=== PATIENT | female | born 1955 | race Caucasian/White ===

== ENCOUNTER → 2016-10-27 | Outpatient (CLI) | payer OTHER ==
[~2016-10-27] MED LIST: BENZ28CR2 VG; CHOL100018 PO; ESTR1PAT10 TP; MULT-115 PO; PROG100C4 PO; ROSU10TA PO
[2016-10-27 10:08] LABS: HEMOGLOBIN 14.9 g/dL (11.7-16.4)
[2016-10-27 10:28] LABS: ASPARTATE AMINO TRANSFERASE 26 U/L (15-37); BLOOD UREA NITROGEN 20 mg/dL (7-18)
== END | disposition home or self-care (01) ==
LOC: STAR 08:39
PROVIDERS: ATTEND Neurological Surgery
DX: Z01.811 Encounter for preprocedural respiratory examination (principal); M50.30 Other cervical disc degeneration, unspecified cervical region; M47.892 Other spondylosis, cervical region; M48.02 Spinal stenosis, cervical region; Z98.890 Other specified postprocedural states
CPT/HCPCS: 36415; 71020; 72052; 80053; 81003; 85025; 85610; 85730; 93005

== ENCOUNTER → 2017-03-26 | Outpatient (CLI) | payer OTHER ==
[~2017-03-26] MED LIST changes: +CHOL100012 PO; -CHOL100018 PO; +PROG100C16 PO; -PROG100C4 PO
== END | disposition home or self-care (01) ==
LOC: CFH 10:56
PROVIDERS: ATTEND Obstetrics & Gynecology
DX: Z12.31 Encounter for screening mammogram for malignant neoplasm of breast (principal)
CPT/HCPCS: G0202

== ENCOUNTER → 2017-04-06 | Outpatient (CLI) | payer OTHER ==
[~2017-04-06] MED LIST changes: +CHOL10003 PO
[2017-04-06 14:50] LABS: HEMATOCRIT 42.5 % (34.6-47.8); HEMOGLOBIN 13.9 g/dL (11.7-16.4); WHITE BLOOD COUNT 7.2 x10^3/uL (3.4-10)
[2017-04-06 14:59] LABS: PATH.CAST-FLAG NOT PRESENT; SPERM-FLAG NOT PRESENT; SRC-FLAG NOT PRESENT; XTAL-FLAG NOT PRESENT; YLC-FLAG NOT PRESENT
[2017-04-06 15:01] LABS: BLOOD UREA NITROGEN 26 mg/dL (7-18)
== END | disposition home or self-care (01) ==
LOC: STAR 13:51
PROVIDERS: ATTEND Neurological Surgery
DX: Z01.818 Encounter for other preprocedural examination (principal); R94.31 Abnormal electrocardiogram [ECG] [EKG]; J98.4 Other disorders of lung; M47.894 Other spondylosis, thoracic region; M50.323 Other cervical disc degeneration at C6-C7 level; R79.1 Abnormal coagulation profile
CPT/HCPCS: 36415; 71020; 80048; 81001; 85025; 85610; 85730; 87086; 93005

== ENCOUNTER → 2017-04-08 | Outpatient (CLI) | payer OTHER ==
[2017-04-08 16:16] LABS: PATH.CAST-FLAG NOT PRESENT; SPERM-FLAG NOT PRESENT; SRC-FLAG NOT PRESENT; XTAL-FLAG NOT PRESENT; YLC-FLAG NOT PRESENT
== END | disposition home or self-care (01) ==
LOC: RAD 15:37
PROVIDERS: ATTEND Internal Medicine
DX: M25.551 Pain in right hip (principal); D72.829 Elevated white blood cell count, unspecified; R82.99 Other abnormal findings in urine
CPT/HCPCS: 81001; 87086

== ENCOUNTER 2017-04-15 07:06 | Inpatient (IN) | payer OTHER ==
[~2017-04-15] VITALS: Ht 163.8 cm; Wt 60.4 kg
[~2017-04-15 07:06] MED LIST changes: +BACITRACIN 50,000 UNIT ONE; +BUPIVACAINE/PF 0.5% ONE; +EPINEPHRINE 1 MG/ML, 1ML ONE; +THROMBIN 5,000 UNIT VIAL TP ONE
[2017-04-15] MEDS ORDERED: LACTATED RINGERS 1,000 ML IV SCH (07:28)
[2017-04-15 07:31] VITALS: BP 127/82
[2017-04-15] MEDS ORDERED: FENTANYL PF 100 MCG/2ML ONE ×2 (08:16→11:36)
[2017-04-15] MEDS ORDERED: MIDAZOLAM 1 MG/ML, 2ML ONE ×3 (08:17→12:04)
[2017-04-15] MEDS ORDERED: ALBUTEROL SULFATE 2.5 MG/3 ML NPPB PRN (08:30)
[2017-04-15] MEDS ORDERED: hydrALAzine 20 MG/ML, 1ML IV PRN (08:30)
[2017-04-15] MEDS ORDERED: MEPERIDINE/PF 25MG/0.5ML IVPush PRN (08:30)
[2017-04-15] MEDS ORDERED: ONDANSETRON 2MG/ML, 2ML IVPush PRN ×2 (08:30→11:30)
[2017-04-15] MEDS ORDERED: EPHEDRINE 50 MG/ML, 1ML IVPush PRN (08:30)
[2017-04-15] MEDS ORDERED: LABETALOL 5MG/ML, 20ML IV PRN (08:30)
[2017-04-15] MEDS ORDERED: METOCLOPRAMIDE 5 MG/ML, 2ML IV PRN (08:30)
[2017-04-15] MEDS ORDERED: REMIFENTANIL 2 MG ONE (09:24)
[2017-04-15] MEDS ORDERED: CEFAZOLIN 1,000 MG ONE (09:27)
[2017-04-15] MEDS ORDERED: EPHEDRINE 50 MG/ML, 1ML ONE (09:27)
[2017-04-15] MEDS ORDERED: ONDANSETRON 2MG/ML, 2ML ONE (09:27)
[2017-04-15] MEDS ORDERED: PROPOFOL 10 MG/ML, 20ML ONE ×2 (09:27)
[2017-04-15] MEDS ORDERED: SUCCINYLCHOLINE 20 MG/ML, 10ML ONE (09:27)
[2017-04-15] MEDS ORDERED: DEXAMETHASONE 4 MG/ML, 5ML ONE (09:27)
[2017-04-15] MEDS ORDERED: BISACODYL 10 MG SUPP PR PRN (11:30)
[2017-04-15] MEDS ORDERED: PHARMACY MAY ADJ FOR RENAL FX MC PRN (11:30)
[2017-04-15] MEDS ORDERED: SENNA/DOCUSATE TABLET PO PRN (11:30)
[2017-04-15] MEDS ORDERED: LABETALOL 5MG/ML, 20ML IVPush PRN (11:30)
[2017-04-15] MEDS ORDERED: PROMETHAZINE 25 MG/ML, 1ML IM PRN (11:30)
[2017-04-15] MEDS ORDERED: HYDROcodone/APAP 5/325 TABLET PO PRN (11:30)
[2017-04-15] MEDS ORDERED: DIPHENHYDRAMINE 50 MG/ML, 1ML IVPush PRN (11:30)
[2017-04-15] MEDS ORDERED: OXYcodone/APAP 5/325MG TABLET PO PRN (11:30)
[2017-04-15] MEDS ORDERED: HYDROmorphone 2 MG/ML, 1ML ONE ×2 (11:36→11:56)
[2017-04-15] MEDS ORDERED: OXYcodone 5 MG/5 ML ORAL.SOL UDC ONE ×2 (11:36→12:16)
[2017-04-15] MEDS ORDERED: ACETAMINOPHEN 650 MG/20.3 ML UDC ONE (11:36)
[2017-04-15] MEDS: FENTANYL PF 100 MCG/2ML IV PRN ×2 (11:38→11:46)
[2017-04-15] MEDS: OXYcodone 5 MG/5 ML ORAL.SOL UDC PO PRN ×2 (11:43→12:17)
[2017-04-15] MEDS ORDERED: METHOCARBAMOL 750 MG TABLET ONE (11:47)
[2017-04-15] MEDS: METHOCARBAMOL 750 MG TABLET PO PRN ×2 (11:49→20:27)
[2017-04-15] MEDS: HYDROmorphone 1 MG/ML, 1ML IV PRN ×3 (11:57→12:14)
[2017-04-15] MEDS ORDERED: methylPREDNISolone*ACETATE* 80 MG/ML IM ONE (12:00)
[2017-04-15] MEDS ORDERED: ACETAMINOPHEN 325 MG TABLET PO PRN (12:00)
[2017-04-15] MEDS ORDERED: DIAZEPAM 5 MG/ML, 2ML IVPush PRN (12:00)
[2017-04-15] MEDS: MIDAZOLAM 1 MG/ML, 2ML IV PRN ×2 (12:05→12:19)
[2017-04-15] MEDS: morphine SULFATE 10 MG/ML, 1ML IVPush PRN ×2 (13:28→15:05)
[2017-04-15] MEDS: HYDROcodone/APAP 10/325 MG TABLET PO PRN ×2 (15:58→20:27)
[2017-04-15] MEDS: D5%-0.9% NACL+KCL 20MEQ 1,000 ML IV SCH (16:14)
[2017-04-15] MEDS: CEFAZOLIN PMX 1GM/50ML 50 ML IVPB SCH (17:15)
[2017-04-15 19:19] VITALS: BP 118/80
[2017-04-15] MEDS ORDERED: ATORVASTATIN 20 MG TABLET PO SCH (21:00)
[2017-04-15 23:30] VITALS: BP 106/56
[2017-04-16] MEDS: CEFAZOLIN PMX 1GM/50ML 50 ML IVPB SCH (01:31)
[2017-04-16] MEDS: HYDROcodone/APAP 10/325 MG TABLET PO PRN ×3 (01:32→09:00)
[2017-04-16 04:44] VITALS: BP 112/78
[2017-04-16] MEDS: D5%-0.9% NACL+KCL 20MEQ 1,000 ML IV SCH (05:46)
[2017-04-16 06:31] VITALS: BP 100/64
[2017-04-16] MEDS: METHOCARBAMOL 750 MG TABLET PO PRN (09:00)
[2017-04-16] MEDS ORDERED: METH750T87 PO (10:35)
[2017-04-16] MEDS ORDERED: HYDR-3307 PO (10:36)
[2017-04-16] MEDS ORDERED: CEPH-368 PO (10:42)
== END 2017-04-16 11:00 | disposition home or self-care (01) | DRG 473 ==
LOC: ORIP 07:06 → 4NOR 13:13 → EDSTATUS 16:00
PROVIDERS: ADMIT Neurological Surgery; ATTEND Neurological Surgery
PROC: 0RB30ZZ Excision of Cervical Vertebral Disc, Open Approach (ICD-10-PCS; 2017-04-15)
PROC: 4A11X4G Monitoring of Peripheral Nervous Electrical Activity, Intraoperative, External Approach (ICD-10-PCS; 2017-04-15)
PROC: 0RG20A0 Fusion of 2 or more Cervical Vertebral Joints with Interbody Fusion Device, Anterior Approach, Anterior Column, Open Approach (ICD-10-PCS; principal; 2017-04-15 09:30)
DX: M50.11 Cervical disc disorder with radiculopathy, high cervical region (principal); M48.02 Spinal stenosis, cervical region; G89.29 Other chronic pain; M25.78 Osteophyte, vertebrae; M25.531 Pain in right wrist; M25.532 Pain in left wrist
CPT/HCPCS: 72040; C1713; J0171; J0690; J1100; J1170; J2250; J2405; J2550; J2704; J3010; J3490; C1762; C1778; J0330; J1040; J2270; J3480; J7120

== ENCOUNTER 2017-05-03 14:54 | Inpatient (IN) | payer OTHER ==
[~2017-05-03] VITALS: Ht 163.8 cm; Wt 57.9 kg
[~2017-05-03 14:54] MED LIST changes: -BACITRACIN 50,000 UNIT ONE; -BUPIVACAINE/PF 0.5% ONE; +CEPH-368 PO; -EPINEPHRINE 1 MG/ML, 1ML ONE; +HYDR-3307 PO; +METH750T87 PO; -THROMBIN 5,000 UNIT VIAL TP ONE
[2017-05-03] MEDS ORDERED: SODIUM CHLORIDE FLUSH 10ML SYR IVF ONE (16:00)
[2017-05-03 16:22] LABS: HEMATOCRIT 43.1 % (34.6-47.8); HEMOGLOBIN 14.3 g/dL (11.7-16.4); WHITE BLOOD COUNT 7.1 x10^3/uL (3.4-10)
[2017-05-03 16:29] LABS: ASPARTATE AMINO TRANSFERASE 19 U/L (15-37); BLOOD UREA NITROGEN 24 mg/dL (7-18)
[2017-05-03 16:34] LABS: IS PT STATUS REG ER OR PRE ER? YES
[2017-05-03] MEDS ORDERED: OMNIPAQUE 350 MG/ML, 150 ML BOTTLE ONE (17:49)
[2017-05-03] MEDS ORDERED: NITROGLYCERIN 0.4 MG BOTTLE (25 TABS) SL PRN (19:00)
[2017-05-03] MEDS ORDERED: morphine SULFATE 10 MG/ML, 1ML IV PRN (19:00)
[2017-05-03] MEDS ORDERED: ACETAMINOPHEN 325 MG TABLET PO PRN (19:00)
[2017-05-03] MEDS ORDERED: ASPIRIN 325 MG TABLET EC PO ONE (19:00)
[2017-05-03] MEDS ORDERED: NITROGLYCERIN 0.4 MG/SPRAY SL PRN (19:00)
[2017-05-03 19:45] LABS: IS PT STATUS REG ER OR PRE ER? YES
[2017-05-03 20:10] VITALS: BP 144/91
[2017-05-03] MEDS: SODIUM CHLORIDE FLUSH 10ML SYR IVF SCH (21:30)
[2017-05-03 22:40] LABS: IS PT STATUS REG ER OR PRE ER? NO
[2017-05-04 05:04] VITALS: BP 114/79
[2017-05-04] MEDS ORDERED: ASPIRIN 325 MG TABLET EC PO SCH (06:00)
[2017-05-04] MEDS: SODIUM CHLORIDE FLUSH 10ML SYR IVF SCH (08:00)
[2017-05-04 08:27] VITALS: BP 122/72
[2017-05-04] MEDS ORDERED: REGADENOSON 0.4 MG/5 ML SYRINGE ONE (08:27)
== END 2017-05-04 14:21 | disposition home or self-care (01) | DRG 313 ==
LOC: ED 19:07 → EDIP 19:42 → 5SO 19:57
PROVIDERS: ADMIT Hospitalist; ATTEND Hospitalist
DX: R07.89 Other chest pain (principal); I25.10 Atherosclerotic heart disease of native coronary artery without angina pectoris; G62.9 Polyneuropathy, unspecified; J38.01 Paralysis of vocal cords and larynx, unilateral; E78.5 Hyperlipidemia, unspecified; Z82.49 Family history of ischemic heart disease and other diseases of the circulatory system; Z98.1 Arthrodesis status
CPT/HCPCS: 36415; 70491; 71010; 71275; 78452; 80053; 80061; 83880; 84484; 85025; 93005; 93017; 99285; J2785; Q9967; A9502; C9898

== ENCOUNTER → 2017-08-31 | Outpatient (CLI) | payer OTHER | END | disposition home or self-care (01) | LOC: CFH 11:15 | PROVIDERS: ATTEND Physician Assistant | DX: M50.33 Other cervical disc degeneration, cervicothoracic region (principal) | CPT/HCPCS: 72050 ==

== ENCOUNTER → 2017-09-10 | Outpatient (CLI) | payer OTHER ==
[~2017-09-10] MED LIST changes: +LIDOCAINE 1%, 20ML ONE; +MULTIHANCE 529 MG/ML, 5ML IV ONE; +OMNIPAQUE 300 MG/ML, 10ML VIAL ONE
== END | disposition home or self-care (01) ==
LOC: CFH 08:08
PROVIDERS: ATTEND Orthopaedic Surgery
DX: S73.101A Unspecified sprain of right hip, initial encounter (principal); X58.XXXA Exposure to other specified factors, initial encounter; Y93.89 Activity, other specified; Y92.89 Other specified places as the place of occurrence of the external cause; Y99.8 Other external cause status; M25.80 Other specified joint disorders, unspecified joint
CPT/HCPCS: 73525; 73722; A9577; J3490; Q9967

== ENCOUNTER → 2018-08-03 | Outpatient (CLI) | payer OTHER ==
[~2018-08-03] MED LIST changes: -LIDOCAINE 1%, 20ML ONE; -MULTIHANCE 529 MG/ML, 5ML IV ONE; -OMNIPAQUE 300 MG/ML, 10ML VIAL ONE
== END | disposition home or self-care (01) ==
LOC: CFH 13:37
PROVIDERS: ATTEND Orthopaedic Surgery
DX: M75.52 Bursitis of left shoulder (principal); M19.012 Primary osteoarthritis, left shoulder

== ENCOUNTER → 2018-08-08 | Outpatient (CLI) | payer OTHER | END | disposition home or self-care (01) | LOC: CVU 10:21 | PROVIDERS: ATTEND Internal Medicine Cardiovascular Disease | DX: I65.23 Occlusion and stenosis of bilateral carotid arteries (principal); R42 Dizziness and giddiness | CPT/HCPCS: 93880 ==

== ENCOUNTER 2019-02-12 17:48 | Outpatient (CLI) | payer OTHER ==
[~2019-02-12 17:48] MED LIST changes: -HYDR-3307 PO; +HYDR-36 PO; -ROSU10TA PO; +ROSU10TA2 PO
[2019-02-27] MEDS ORDERED: EZET10TA70 PO (20:24)
[2019-02-27] MEDS ORDERED: ROSU20TA2 PO (20:24)
[2019-03-03] MEDS ORDERED: GABA300C10 PO (12:46)
[2019-03-03] MEDS ORDERED: ERGO500017 PO (12:46)
[2019-03-03] MEDS ORDERED: ONDA4TAB7 PO (12:46)
== END 2019-02-12 23:59 | disposition home or self-care (01) ==
LOC: RAD 17:48
PROVIDERS: ATTEND Internal Medicine
DX: I82.422 Acute embolism and thrombosis of left iliac vein (principal)

== ENCOUNTER 2019-02-17 14:54 | Outpatient (CLI) | payer OTHER | END 2019-02-17 23:59 | disposition home or self-care (01) | LOC: RAD 14:54 | PROVIDERS: ATTEND Physician Assistant | DX: M54.17 Radiculopathy, lumbosacral region (principal); M48.02 Spinal stenosis, cervical region | CPT/HCPCS: 72040; 72110 ==

== ENCOUNTER 2019-02-23 12:31 | Outpatient (CLI) | payer OTHER | END 2019-02-23 23:59 | disposition home or self-care (01) | LOC: CFH 12:31 → EDSTATUS 02-27 10:00 | PROVIDERS: ATTEND Physician Assistant | DX: M48.07 Spinal stenosis, lumbosacral region (principal); M47.816 Spondylosis without myelopathy or radiculopathy, lumbar region; M51.37 Other intervertebral disc degeneration, lumbosacral region; M51.27 Other intervertebral disc displacement, lumbosacral region | CPT/HCPCS: 72110; 72148 ==

== ENCOUNTER 2019-07-19 09:10 | Outpatient (CLI) | payer OTHER ==
[~2019-07-19 09:10] MED LIST changes: +ERGO500017 PO; +EZET10TA70 PO; +GABA300C10 PO; +ONDA4TAB7 PO; +ROSU20TA2 PO
== END 2019-07-19 23:59 | disposition home or self-care (01) ==
LOC: CFH 09:10
PROVIDERS: ATTEND Obstetrics & Gynecology
DX: Z12.31 Encounter for screening mammogram for malignant neoplasm of breast (principal); N64.89 Other specified disorders of breast
CPT/HCPCS: 77063; 77067

== ENCOUNTER → 2020-06-16 | Outpatient (CLI) | payer OTHER ==
[~2020-06-16] MED LIST changes: +HYDR-3246 PO; -HYDR-36 PO
== END | disposition home or self-care (01) ==
LOC: RAD 15:37
PROVIDERS: ATTEND Internal Medicine
DX: M41.85 Other forms of scoliosis, thoracolumbar region (principal); M48.05 Spinal stenosis, thoracolumbar region; M41.80 Other forms of scoliosis, site unspecified; M51.34 Other intervertebral disc degeneration, thoracic region
CPT/HCPCS: 72072; 72100

== ENCOUNTER → 2020-10-30 | Outpatient (CLI) | payer OTHER ==
[~2020-10-30] MED LIST changes: -HYDR-3246 PO; +HYDR-3248 PO
== END | disposition home or self-care (01) ==
LOC: CFH 10:10
PROVIDERS: ATTEND Obstetrics & Gynecology
DX: Z12.31 Encounter for screening mammogram for malignant neoplasm of breast (principal)
CPT/HCPCS: 77063; 77067

== ENCOUNTER 2021-03-24 08:20 | Outpatient (CLI) | payer OTHER | END 2021-03-24 23:59 | disposition home or self-care (01) | LOC: CFH 08:20 | PROVIDERS: ATTEND Obstetrics & Gynecology | DX: M85.88 Other specified disorders of bone density and structure, other site (principal); M81.0 Age-related osteoporosis without current pathological fracture; Z79.52 Long term (current) use of systemic steroids | CPT/HCPCS: 77080 ==